=== PATIENT | female | born 1995 | race Caucasian/White ===

== ENCOUNTER → 2017-03-13 | Outpatient (CLI) | payer OTHER ==
--- NOTE | 2017-03-13 15:31 | RAD ---
INDICATION: Hematuria and flank pain COMPARISON: None. TECHNIQUE: Axial CT images were obtained through the abdomen and pelvis without intravenous contrast. Coronal reformations were processed. FINDINGS: Abdomen: Chest Base: Partially imaged without gross abnormality. Vessels: No abdominal aortic aneurysm. Liver/Biliary: No intrahepatic biliary duct dilation. Pancreas: No definite adjacent edema. Spleen: Normal. Kidneys/Adrenal: 2 mm calcification at the expected location of the left ureterovesicular junction with mild distention left ureter. There is an additional 1 mm nonobstructive right renal stone. GI: No free air. No bowel dilation to suggest obstruction. No periappendiceal inflammation. Small fat-containing umbilical hernia is suspected. Pelvis: Bladder: Partially distended without gross abnormality. IMPRESSION: 1. Suspected left distal ureter stone. 2. 45 x 31 mm cystic lesion left adnexa. Follow-up ultrasound could further evaluate to ensure that there is no complex component. PQRS Compliance Statement: One or more of the following individualized dose reduction techniques were utilized for this examination: 1. Automated exposure control 2. Adjustment of the mA and/or kV according to patient size 3. Use of iterative reconstruction technique
== END | disposition home or self-care (01) ==
LOC: CT 13:50
PROVIDERS: ATTEND Family Medicine
DX: N39.8 Other specified disorders of urinary system (principal); R30.0 Dysuria; R31.9 Hematuria, unspecified
CPT/HCPCS: 74176

== ENCOUNTER → 2017-12-07 | Outpatient (CLI) | payer OTHER ==
[~2017-12-07] MED LIST: IOHEXOL 240 MG/ML 50ML VIAL. ONE; IOHEXOL 240 MG/ML 50ML VIAL. PO ONE; IOHEXOL 300 MG/ML 75 ML VIAL. IV ONE
--- NOTE | 2017-12-07 16:51 | RAD ---
PQRS Compliance Statement: One or more of the following individualized dose reduction techniques were utilized for this examination: 1. Automated exposure control 2. Adjustment of the mA and/or kV according to patient size 3. Use of iterative reconstruction technique CT abdomen/pelvis with contrast 12/07/2017 3:26 PM INDICATION: Left upper quadrant and epigastric abdominal pain. COMPARISON: CT abdomen/pelvis March 13, 2017 TECHNIQUE: Multiple axial CT images of the abdomen and pelvis were obtained after the intravenous administration of intravenous contrast. Coronal and sagittal reformats are provided. FINDINGS: Visualized portions of the lung bases are clear. Heart size is within normal limits. No suspicious hepatic masses are identified. Liver is homogeneous in enhancement. Spleen, bilateral adrenal glands, and pancreas are normal in appearance. Gallbladder is present without adjacent inflammatory changes. Abdominal aorta is normal in course and caliber. There are no pathologically enlarged lymph nodes in abdomen or pelvis. There is no free fluid or free intraperitoneal air. The kidneys enhance symmetrically. There is a 3 mm nonobstructing calculus in superior pole the left kidney. There are no right renal calculi or calculi in the ureters or urinary bladder. There is no hydronephrosis. Oral contrast was administered. Small large bowel are normal in caliber. No evidence for bowel obstruction or inflammation. Opacified bowel loops demonstrate normal mucosal fold pattern. Normal appendix is visualized. Urinary bladder is within normal limits given degree of distention. There is a left adnexal cystic lesion measuring 4.1 x 3.4 cm. This finding is stable dating back to March 13, 2017. No suspicious osseous lesion is identified. IMPRESSION: 1. There is a stable 4.1 x 3.4 cm cystic lesion in the left adnexa. Findings may represent a cystadenoma of the left ovary. 2. No evidence for bowel obstruction or inflammation. 3. There is a 3 mm nonobstructing calculus in the superior pole the left kidney. No hydronephrosis. Electronically signed by: Yumiko Sultana MD (12/07/2017 4:47 PM) [id number]
== END | disposition home or self-care (01) ==
LOC: CT 14:15
PROVIDERS: ATTEND Nurse Practitioner Family
DX: N20.0 Calculus of kidney (principal); K52.89 Other specified noninfective gastroenteritis and colitis
CPT/HCPCS: 74177; Q9966; Q9967

== ENCOUNTER → 2018-05-12 | Outpatient (CLI) | payer OTHER ==
--- NOTE | 2018-05-12 09:37 | RAD ---
EXAM: Abdomen and pelvis CT without intravenous contrast. HISTORY: Left flank pain. TECHNIQUE: Computed tomographic images of the abdomen and pelvis were obtained without contrast. Multiplanar reformatting was performed. *One or more of the following individualized dose reduction techniques were utilized for this examination: 1. Automated exposure control. 2. Adjustment of the mA and/or kV according to patient size. 3. Use of iterative reconstruction technique. COMPARISON: 12/07/2017. FINDINGS: Evaluation of the lower thorax demonstrates no infiltrate or pleural effusion. The heart is normal in size. No hepatic lesion is seen. The gallbladder, pancreas, spleen, and adrenal glands are unremarkable. There is mild left hydronephrosis and hydroureter secondary to an obstructing 4 mm stone at the left ureterovesical junction. There is associated slight left perinephric stranding. There are few additional punctate right greater than left renal stones measuring 1 mm or less than 1 mm. No solid or cystic renal lesion is seen. There is no appendicitis. There is no bowel obstruction. There is a 3.9 cm left ovarian cyst and 2.2 cm right ovarian cyst. There is trace physiologic pelvic free fluid. There are prominent lymph nodes throughout the mesentery, likely physiologic in a patient of this age. This is stable in appearance. There is no suspicious osseous lesion. IMPRESSION: 1. Mild left obstructive uropathy secondary to a 4 mm stone at the left ureterovesical junction. There are additional tiny right greater than left nonobstructing renal stones. 2. 3.9 cm left and 2.3 cm right ovarian cysts. Electronically signed by: Carmelina Bergeron MD (05/12/2018 9:33 AM) [place] [id number]
== END | disposition home or self-care (01) ==
LOC: CT 08:07
PROVIDERS: ATTEND Nurse Practitioner Family
DX: N13.8 Other obstructive and reflux uropathy (principal); N20.1 Calculus of ureter; N28.1 Cyst of kidney, acquired; N13.39 Other hydronephrosis; N13.4 Hydroureter
CPT/HCPCS: 74176

== ENCOUNTER 2021-05-06 21:24 | Emergency (ER) | payer OTHER ==
[~2021-05-06] VITALS: Ht 162.6 cm; Wt 112.2 kg
[2021-05-06 21:35] VITALS: BP 149/74
--- NOTE | 2021-05-06 22:24 | PHYS DOC ---
Past History Past Medical History: No Pertinent History Past Surgical History: Appendectomy, Other Additional Past Surgical Histo: L-EYE Smoking: Non-smoker Alcohol Use: None Drug Use: None General Adult EDM: Chief Complaint: MECHANICAL FALL HPI: HPI: 25-year-old female who is 29 weeks presents after mechanical fall. She was leaving a friend's house and when she stepped off the porch she missed the last step. She went down on her bilateral hands and left knee. She has abrasions of the left knee and her right wrist. She did hit her belly the ground. She was concerned so she came to the emergency room. She has had no contraction-like pain or vaginal bleeding or discharge. She has felt the baby move. She has no other complaints this time. Review of Systems: Review of Systems: Constitutional: Denies fever or chills Eyes: Denies change in visual acuity HENT: Denies nasal congestion or sore throat Respiratory: Denies cough or shortness of breath Cardiovascular: Denies chest pain or edema GI: Denies abdominal pain, nausea, vomiting, bloody stools or diarrhea : Denies dysuria Musculoskeletal: Denies back pain or joint pain Integument: Abrasions Neurologic: Denies headache, focal weakness or sensory changes Endocrine: Denies polyuria or polydipsia Lymphatic: Denies swollen glands Psychiatric: Denies depression or anxiety Allergies: Allergies: Allergies Coded Allergies Type Severity Reaction Last Updated Verified clarithromycin Allergy Intermediate VOMIT 03/31/15 Yes ondansetron Allergy Intermediate 05/06/21 Yes Physical Exam: PE: Constitutional: Well developed, well nourished, no acute distress, non-toxic appearance. [] HENT: Normocephalic, atraumatic, bilateral external ears normal, oropharynx moist, no oral exudates, nose normal. [] Eyes: PERRLA, EOMI, conjunctiva normal, no discharge. [] Neck: Normal range of motion, no tenderness, supple, no stridor. [] Cardiovascular:Heart rate regular rhythm, no murmur [] Lungs & Thorax: Bilateral breath sounds clear to auscultation [] Abdomen: Bowel sounds normal, gravid uterus, no tenderness, no masses, no pulsatile masses. [] Skin: Abrasion right wrist [] Back: No tenderness, no CVA tenderness. [] Extremities: No tenderness, no cyanosis, no clubbing, ROM intact, no edema. [] Neurologic: Alert and oriented X 3, normal motor function, normal sensory function, no focal deficits noted. [] Psychologic: Affect normal, judgement normal, mood normal. [] Current Patient Data: Vital Signs: Vital Signs Date Time Temp Pulse Resp B/P (MAP) Pulse Ox O2 Delivery O2 Flow Rate FiO2 05/06/21 21:35 98.5 95 20 149/74 (99) 97 Room Air EKG: EKG: [] Radiology/Procedures: Radiology/Procedures: [] Heart Score: C/O Chest Pain: N/A Risk Factors: Risk Factors: DM, Current or recent (<one month) smoker, HTN, HLP, family history of CAD, obesity. Risk Scores: Score 0 - 3: 2.5% MACE over next 6 weeks - Discharge Home Score 4 - 6: 20.3% MACE over next 6 weeks - Admit for Clinical Observation Score 7 - 10: 72.7% MACE over next 6 weeks - Early Invasive Strategies Course & Med Decision Making: Course & Med Decision Making Pertinent Labs and Imaging studies reviewed. (See chart for details) heart tones in the 130s. Patient has superficial abrasions. We have monitored her for a while and no more concerning symptoms have developed. She is stable for discharge at this time. [] Dragon Disclaimer: Dragon Disclaimer: This electronic medical record was generated, in whole or in part, using a voice recognition dictation system. Departure Departure: Impression: Primary Impression: Fall from stairs Additional Impression: Qualified Codes: Z3A.29 - 29 weeks gestation of Disposition: HOME / SELF CARE / HOMELESS Condition: STABLE Referrals: EFREN BOB MD (PCP) Patient Instructions: Radha, [id number] ENDY FOSS DO May 06, 2021 22:24
== END 2021-05-06 23:28 | disposition home or self-care (01) ==
LOC: ER 21:24
DX: O9A.213 Injury, poisoning and certain other consequences of external causes complicating pregnancy, third trimester (principal); S80.212A Abrasion, left knee, initial encounter; S60.811A Abrasion of right wrist, initial encounter; Z3A.29 29 weeks gestation of pregnancy; Z88.1 Allergy status to other antibiotic agents; Z88.8 Allergy status to other drugs, medicaments and biological substances; W18.39XA Other fall on same level, initial encounter; Y93.89 Activity, other specified; Y92.89 Other specified places as the place of occurrence of the external cause; Y99.8 Other external cause status
CPT/HCPCS: 99281

== ENCOUNTER 2021-07-25 12:02 | Emergency (ER) | payer OTHER ==
[~2021-07-25] VITALS: Ht 162.6 cm; Wt 105.2 kg
[2021-07-25 12:39] VITALS: BP 154/102
[2021-07-25] MEDS ORDERED: IV NORMAL SALINE 1,000ML 1,000 ML IV ONE (13:15)
[2021-07-25] MEDS ORDERED: METOCLOPRAMIDE 10 MG TABLET PO ONE (13:15)
[2021-07-25] MEDS ORDERED: diphenhydrAMINE 50 MG/ML VIAL IVP ONE (13:15)
[2021-07-25] MEDS ORDERED: KETOROLAC 30 MG/ML VIAL. IVP ONE (13:15)
--- NOTE | 2021-07-25 13:26 | RAD ---
CT HEAD/BRAIN WO Date: 07/25/2021 1:14 PM Clinical Indication: Reason: Migraine with thunderclap onset / Spl. Instructions: / History: Comparison: None. Technique: 5 mm axial tomographic images were obtained of the head without contrast. These were view ed on brain and bone windows. One or more of the following dose reduction techniques were utilized: A utomated exposure control (AEC), Adjustment of mA and/or kV according to patient size, Use of iterati ve reconstruction technique such as ASiR, CT scan done according to ALARA and image gently/image naranjo ly Findings: The brain parenchyma is normal in attenuation. No intra- or extra-axial mass or fluid collection. No acute hemorrhage. The ventricles are normal in size, shape, and morphology. The del rosario-white matter shyam ction is normal. The subarachnoid cisterns are patent. The visualized paranasal sinuses are normal. The visualized portions of the orbits and globes are no rmal. The mastoid air cells are clear. The home health lpn topogram shows no lytic lesion or fracture. Impression: No acute intracranial process. Electronically signed by: Ivan Jason MD (07/25/2021 1:23 PM) [facility]
--- NOTE | 2021-07-25 14:14 | PHYS DOC ---
Past History Past Medical History: No Pertinent History Additional Past Medical Histor: Heart palpitations, hypertension during , seasonal depression (SAPPHIRE CAMPOS APRN) Past Surgical History: Additional Past Surgical Histo: 07/09/21 at [facility] (SAPPHIRE CAMPOS APRN) Smoking: Non-smoker Alcohol Use: None Drug Use: None (SAPPHIRE CAMPOS APRN) Adult General Chief Complaint Chief Complaint: HEADACHE HPI HPI Patient is a 25-year-old female who presents to the emergency department complaining of an acute onset of migraine headache last night while she was laying down approximately 11 PM. Patient reports a history of migraine headaches, reports frequency of 2/month. Reports she usually finds relief with [id number] ibuprofen. Patient reports she took ibuprofen this morning but did not help her headache pain level of a reported 10 out of 10. Patient does report a thunderclap onset, describing "it feels like someone hit me in the head with a 2 x 4 "patient reports this is the worst headache she has ever experienced. Patient does report being 16 days in which she had a epidural for pain control while she delivered. Patient reports she is breast- feeding. Patient denies a migraine aura, denies dizziness or visual disturbances, denies nausea, vomiting, diarrhea or abdominal pain. Patient denies other physical complaints or physical concerns. (SAPPHIRE CAMPOS APRN) Review of Systems Review of Systems 14 body systems of review of systems have been reviewed. See HPI for pertinent positives and negative responses, otherwise all other systems are negative, nonpertinent or noncontributory. Constitutional: Negative except as outlined in HPI above. Skin: Negative except as outlined in HPI above. Eyes: Negative except as outlined in HPI above. HENT: Negative except as outlined in HPI above. Respiratory: Negative except as outlined in HPI above. Cardiovascular: Negative except as outlined in HPI above. GI: Negative except as outlined in HPI above. : Negative except as outlined in HPI above. Musculoskeletal: Negative except as outlined in HPI above. Integument: Negative except as outlined in HPI above. Neurologic: Negative except as outlined in HPI above. Endocrine: Negative except as outlined in HPI above. Lymphatic: Negative except as outlined in HPI above. Psychiatric: Negative except as outlined in HPI above. (SAPPHIRE CAMPOS APRN) Current Medications Current Medications Current Medications Medications (Trade) Dose Ordered Sig/Lewis Start Time Stop Time Status Last Admin Dose Admin Diphenhydramine HCl (Benadryl) 25 mg 1X ONCE 07/25/21 13:15 07/25/21 13:16 DC 07/25/21 13:23 25 MG Ketorolac Tromethamine (Toradol 30mg Vial) 30 mg 1X ONCE 07/25/21 13:15 07/25/21 13:16 DC 07/25/21 13:23 30 MG Metoclopramide HCl (Reglan) 10 mg 1X ONCE 07/25/21 13:15 07/25/21 13:16 DC 07/25/21 13:23 10 MG Sodium Chloride 1,000 ml @ 1,000 mls/hr 1X ONCE 07/25/21 13:15 07/25/21 14:14 07/25/21 13:23 1,000 MLS/HR (SAPPHIRE CAMPOS APRN) Allergies Allergies Allergies Coded Allergies Type Severity Reaction Last Updated Verified clarithromycin Allergy Intermediate VOMIT 03/31/15 Yes ondansetron Allergy Intermediate 05/06/21 Yes (SAPPHIRE CAMPOS APRN) Physical Exam Physical Exam Constitutional: Well developed, well nourished, no acute distress, non-toxic appearance. 25-year-old female in no apparent distress. Patient's complaint of pain exceeds patient's physical appearance and examination. HENT: Normocephalic, atraumatic. No drooling, no trismus, no raccoon eyes, no aguillon sign, bilateral TMs intact and within normal limits, no drainage from external auditory canals, no lymphadenopathy of the head or neck appreciated, oropharynx moist, pink, no deep tissue infectious process appreciated. Eyes: Conjunctiva normal, no discharge. PERRLA, no photophobia elicited. Neck: Normal range of motion, no stridor. No meningismus signs, no nuchal rigidity appreciated. Cardiovascular: No cyanosis appreciated, distal cap refill less than 2 seconds. Lungs & Thorax: Patient is in no respiratory distress, no audible adventitious lung sounds appreciated. Abdomen: Nontender, no abnormalities noted. Skin: Warm, dry, no erythema, no rash. Back: No tenderness, no deformities. Extremities: No tenderness, no cyanosis, no clubbing, ROM intact, no edema. [] Neurologic: Alert and oriented X 3, normal motor function, normal sensory function, no focal deficits noted. Psychologic: Affect normal, judgement normal, mood normal. (SAPPHIRE CAMPOS APRN) Current Patient Data Vital Signs Vital Signs Date Time Temp Pulse Resp B/P (MAP) Pulse Ox O2 Delivery O2 Flow Rate FiO2 07/25/21 12:39 100.7 121 26 154/102 (119) 95 Room Air (SAPPHIRE CAMPOS APRN) EKG EKG [] (SAPPHIRE CAMPOS APRN) Radiology/Procedures Radiology/Procedures REASON: Migraine with thunderclap onset PROCEDURE: CT HEAD WO CONTRAST CT HEAD/BRAIN WO Date: 07/25/2021 1:14 PM Clinical Indication: Reason: Migraine with thunderclap onset / Spl. Instructions: / History: Comparison: None. Technique: 5 mm axial tomographic images were obtained of the head without contrast. These were viewed on brain and bone windows. One or more of the following dose reduction techniques were utilized: Automated exposure control (AEC), Adjustment of mA and/or kV according to patient size, Use of iterative reconstruction technique such as ASiR, CT scan done according to ALARA and image gently/image wisely Findings: The brain parenchyma is normal in attenuation. No intra- or extra-axial mass or fluid collection. No acute hemorrhage. The ventricles are normal in size, shape, and morphology. The del rosario-white matter junction is normal. The subarachnoid cisterns are patent. The visualized paranasal sinuses are normal. The visualized portions of the orbits and globes are normal. The mastoid air cells are clear. The equal opportunity assistant topogram shows no lytic lesion or fracture. Impression: No acute intracranial process. Electronically signed by: Ivan Jason MD (07/25/2021 1:23 PM) [facility] [place] (SAPPHIRE CAMPOS APRN) Heart Score C/O Chest Pain: No Risk Factors: Risk Factors: DM, Current or recent (<one month) smoker, HTN, HLP, family history of CAD, obesity. Risk Scores: Risk Factors: DM, Current or recent (<one month) smoker, HTN, HLP, family history of CAD, obesity. (SAPPHIRE CAMPOS APRN) Course & Med Decision Making Course & Med Decision Making Pertinent Labs and Imaging studies reviewed. (See chart for details) 25-year-old female, vital signs reviewed, presents to the emergency department concerning migraine headache. Physical examination nonconcerning for head injury, however patient's description of events will order CT head, headache cocktail, patient reports headache exacerbated while in a lying down flat position, this is unlikely headache related to spinal puncture for epidural. CT head unremarkable, upon reevaluation of the patient, patient reports she is feeling much better now and would like to go home. Discussed with patient strict follow-up with primary care for ongoing evaluation for migraine headaches and headache management, discussed return to ER precaution concerns, use of [id number] NSAIDs or Tylenol for ongoing headaches, patient gave verbal understanding of and is amenable to ED discharge planning. Discussed with the patient all findings and diagnostic testing as well as the need to follow-up with their primary care provider for further evaluation and treatment or return to the ED if any new or worsening symptoms. Strict return precautions were also discussed at length, the patient voiced understanding and agreement with the discharge planning. The patient was nontoxic in appearance, in no apparent distress, and hemodynamically stable at the time of disposition. (SAPPHIRE CAMPOS APRN) Dragon Disclaimer Dragon Disclaimer This electronic medical record was generated, in whole or in part, using a voice recognition dictation system. (SAPPHIRE CAMPOS APRN) Departure Departure: Impression: Primary Impression: Migraine Disposition: 01 HOME / SELF CARE / HOMELESS Condition: GOOD Referrals: EFREN BOB MD (PCP) Patient Instructions: Migraine Headache Additional Instructions: You were seen in the emergency department today for migraine headache, you had indicated this was the worst headache you have ever experienced, therefore a CT of your head was performed, there was no concerning signs of bleed or other neurological abnormalities, you had indicated the medications given in the ED helped with your headache. Please follow-up with your primary care physician Dr. Bob for ongoing headache management and consideration for migraine medications. Return to the emergency department for worsening symptoms or other concerns. It is safe for you to continue breast-feeding at home. Thank you for visiting our Emergency Department. It was a pleasure taking care of you today in the emergency department and we appreciate you trusting us with your care. If any additional problems come up don't hesitate to return to visit us. Please follow up with your primary care provider so they can plan additional care if needed and know about the problem that you had. If symptoms worsen come back to the Emergency Department. Any concerning symptoms that start such as chest pain, shortness of air, weakness or numbness on one side of the body, running high fevers or any other concerning symptoms return to the ER. EMERGENCY DEPARTMENT GENERAL DISCHARGE INSTRUCTIONS Thank you for coming to [facility] (ED) today and trusting us with you care. We trust that you had a positivie experience in our Emergency Department. If you wish to speak to the department management, you may call the director at [phone]. YOUR FOLLOW UP INSTRUCTIONS ARE FOLLOWS: 1. Do you have a private Doctor? If you do not have a private doctor, please ask for a resource list of physicians or clinics that may be able to assist you with follow up care. 2. The Emergency Physician has interpreted your x-rays. The X-Ray specialist will also review them. If there is a change in the findings, you will be notified in 48 hours when at all possible. 3. A lab test or culture has been done, your results will be reviewed and you will be notified if you need a change in treatment. ADDITIONAL INSTRUCTIONS AND INFORMATION: 1. Your care today has been supervised by a physician who is specially trained in emergency care. Many problems require more than one evaluation for a complete diagnosis and treatment. We recommend that you schedule your follow up appointment as recommended to ensure complete treatment of you illness or injury. If you are unable to obtain follow up care and continue to have a problem, or if your condition worsens, we recommend that you return to the ED. 2. We are not able to safely determine your condition over the phone nor are we able to give sound medical advice over the phone. For these safety reasons, if you call for medical advice we will ask you to come to the ED for further evaluation. 3. If you have any questions regarding these discharge instructions please call the ED at [phone]. SAFETY INFORMATION: In the interest of safety, wellness, and injury prevention; we encourage you to wear your sealbelt, if you smoke; quite smoking, and we encourage family to use a protective helmet for bicycling and other sporting events that present an increased risk for head injury. IF YOUR SYMPTOMS WORSEN OR NEW SYMPTOMS DEVELOP, OR YOU HAVE CONCERNS ABOUT YOUR CONDITION; OR IF YOUR CONDITION WORSENS WHILE YOU ARE WAITING FOR YOUR FOLLOW UP APPOINTMENT; EITHER CONTACT YOUR PRIMARY CARE DOCTOR, THE PHYSICIAN WHOSE NAME AND NUMBER YOU WERE Kayden RYAN, OR RETURN TO THE ED IMMEDIATELY. Attending Signature Attending Signature I have reviewed the PA/TOOTH INSPECTOR's note and plan of care. I was available for consultation as needed during the patient's visit in the emergency department. I agree with the clinical impression, plan, and disposition. (SAPPHIRE IRIZARRY DO) Problem Qualifiers Primary Impression: Migraine Migraine type: unspecified Status migrainosus presence: without status migrainosus Intractability: not intractable Qualified Codes: G43.909 - Migraine, unspecified, not intractable, without status migrainosus SAPPHIRE CAMPOS APRN Jul 25, 2021 14:14 SAPPHIRE IRIZARRY DO Jul 26, 2021 15:26
== END 2021-07-25 14:57 | disposition home or self-care (01) ==
LOC: ER 12:02
DX: O90.89 Other complications of the puerperium, not elsewhere classified (principal); G43.909 Migraine, unspecified, not intractable, without status migrainosus; Z98.890 Other specified postprocedural states; Z88.1 Allergy status to other antibiotic agents; Z88.8 Allergy status to other drugs, medicaments and biological substances
CPT/HCPCS: 70450; 96361; 96374; 96375; 99284; J1200; J1885; J7030